=== PATIENT | female | born 1935 | race Caucasian/White ===

== ENCOUNTER → 2016-05-10 | Outpatient (CLI) | payer MEDICARE, OTHER | LOC: BFHH 14:44 | PROVIDERS: ATTEND Family Medicine | DX: R30.0 Dysuria (principal) ==

== ENCOUNTER 2016-06-18 13:13 | Emergency (ER) | payer MEDICARE, OTHER ==
[2016-06-18 13:32] VITALS: TEMP 98.2
[2016-06-18] MEDS ORDERED: ASPIRIN TABLET 325 MG TAB PO ONE (13:52)
--- NOTE | 2016-06-18 14:06 | RAD ---
EXAM DESCRIPTION: Chest,1 View CLINICAL HISTORY: chest pain COMPARISON: October 12, 2014 IMPRESSION: Single AP portable upright view of the chest shows mild enlargement of the cardiac silhouette without pulmonary vascular congestion. Left subclavian dual-lead transvenous cardiac pacemaker seen in place. Lungs are hypoaerated without acute appearing infiltrate or consolidation.. No obvious pleural effusion or pneumothorax is seen. Multiple remote right-sided rib fractures are again seen. Electronically signed by: Kenan Cárdenas MD 06/18/2016 2:04 PM SUPERVISOR WOOD ROOM
[2016-06-18] MEDS ORDERED: NITROGLYCERIN 0.4 MG 25 EA TAB SL ONE (14:07)
--- NOTE | 2016-06-18 15:08 | ED.PDOC ---
History of Present Illness - General Chief Complaint: Chest Pain/NE Stated Complaint: chest pain Time Seen by Provider: 06/18/16 14:06 Source: RN notes reviewed, Vital Signs reviewed, family Exam Limitations: physical impairment - History of Present Illness Initial Comments: Patient is a 81 y/o female with a past history of CVA who is brought in by her daughter with complaints of chest pain. Patient only says "NO" to all my questions and it is difficult to discern exactly where the pain is--in the chest or abdomen. Neurologically, this is Patient's baseline. Patient is agitated and does not want anyone to touch her. Her states that this started just prior to lunch. This is not her baseline as far as anxiety. Timing/Duration: 1-3 hours Severity: moderate Improving Factors: nothing Worsening Factors: nothing Associated Symptoms: chest pain Allergies/Adverse Reactions: Allergies NO KNOWN ALLERGY Allergy (Verified 06/18/16 13:32) Home Medications: Ambulatory Orders Atorvastatin Calcium [Lipitor] 10 mg PO AC 10/12/14 Ciprofloxacin [Cipro] 500 mg PO BID #20 tab 10/12/14 Lisinopril 10 mg PO QPM 10/12/14 Metoprolol & Hydrochlorothiazi 50 mg PO BID 10/12/14 metroNIDAZOLE [Flagyl] 500 mg PO Q6HRS #40 tab 10/12/14 Pantoprazole Sodium [Protonix] 40 mg PO DAILY #14 tab 06/18/16 Review of Systems - Review of Systems Cardiology: States: chest pain Neurological: States: anxiety Unable to Obtain Due To: condition - Patient unable to verbalize and communicate due to prior CVA Past Medical History (General) - Patient Medical History Hx Stroke: Yes Hx Pacemaker: Yes Hx Diabetes: No Hx Cancer: Yes Hx Hepatitis C: No - Vaccination History Hx Tetanus, Diphtheria Vaccination: - unknown Hx Influenza Vaccination: - unknown Hx Pneumococcal Vaccination: - unknown - Social History Hx Tobacco Use: No Hx Alcohol Use: Yes - wine, occasional Hx Substance Use: No Hx Substance Use Treatment: No Hx Depression: No - Activities of Daily Living Hospice Agency (if applicable):: None - Female History Patient is a Female of Child Bearing Age (10 -59 yrs old): No Patient : No Family Medical History - Family History Mother Name: mother Living Status: Age at (years of age): 82 Cause of : stroke Physical Exam - Physical Exam General Appearance: Anxious, Obvious distress Eye Exam: bilateral normal Ears, Nose, Throat: normal ENT inspection Respiratory: lungs clear, normal breath sounds, no respiratory distress, no accessory muscle use Cardiovascular/Chest: regular rate, rhythm, no edema, no gallop, no murmur Gastrointestinal/Abdominal: normal bowel sounds, non tender - This is questionable as Patient looked at me very aggravated when I palpated the epigastric area. I was unable to tell whether this was painful or if Patient was simply aggravated because I was touching her., soft, no organomegaly Extremity: normal range of motion, non-tender, no pedal edema Neurologic: alert, other - very anxious Skin Exam: normal color, warm/dry Progress - Progress Progress: 06/18/16 16:24 Patient was very anxious and I had ordered some Ativan for her. However, after she went to the bathroom, she felt much better. The anxiety was decreased significantly and she was able to point to the area that was painful--the epigastric area. Since all her labs are normal, and patient is extremely ready to go home, I will discharge her with some Protonix and have her follow up with her PCP. - Results/Orders Results/Orders: 06/18/16 06/18/16 06/18/16 13:13 13:32 14:35 Temperature 98.2 F Pulse Rate [ 69 74 pulse ox] Respiratory 20 26 H 20 Rate Blood Pressure 154/69 115/46 [Left Arm] O2 Sat by Pulse 97 94 L Oximetry 06/18/16 13:30 EKG STAT Laboratory Results WBC 8.3 K/mm3 (4.8-10.8) 06/18/16 13:55 RBC 4.70 M/mm3 (4.20-5.40) 06/18/16 13:55 Hgb 14.6 gm/dL (12.0-16.0) 06/18/16 13:55 Hct 44.1 % (36.0-47.0) 06/18/16 13:55 MCV 93.9 fl (81.0-99.0) 06/18/16 13:55 MCH 31.1 pg (27.0-31.0) H 06/18/16 13:55 MCHC 33.2 g/dL (33.0-37.0) 06/18/16 13:55 RDW 14.8 % (11.5-14.5) H 06/18/16 13:55 Plt Count 234 K/mm3 (130-400) 06/18/16 13:55 MPV 8.7 fl (7.40-10.4) 06/18/16 13:55 Absolute Neuts (auto) 6.30 K/uL (1.8-6.8) 06/18/16 13:55 Absolute Lymphs (auto) 1.50 K/uL (1.0-3.4) 06/18/16 13:55 Absolute Monos (auto) 0.30 K/uL (0.2-0.8) 06/18/16 13:55 Absolute Eos (auto) 0.10 K/uL (0.0-0.4) 06/18/16 13:55 Absolute Basos (auto) 0.00 K/uL (0.0-0.1) 06/18/16 13:55 Neutrophils % 76.8 % (42.0-78.0) 06/18/16 13:55 Lymphocytes % 17.9 % (20.0-50.0) L 06/18/16 13:55 Monocytes % 3.5 % (2.0-9.0) 06/18/16 13:55 Eosinophils % 1.6 % (1.0-5.0) 06/18/16 13:55 Basophils % 0.2 % (0.0-2.0) 06/18/16 13:55 PT 10.5 SECONDS (9.4-12.5) 06/18/16 13:55 INR 0.930 06/18/16 13:55 PTT (SP) 26.1 SECONDS (25.1-36.5) 06/18/16 13:55 D-Dimer, Quantitative 443 ng/mL (0-230) H* 06/18/16 13:55 Sodium 142 mmol/L (135-145) 06/18/16 13:55 Potassium 3.7 mmol/L (3.6-5.0) 06/18/16 13:55 Chloride 105 mmol/L (101-111) 06/18/16 13:55 Carbon Dioxide 28 mmol/L (21-31) 06/18/16 13:55 Anion Gap 12.7 (12-18) 06/18/16 13:55 BUN 17 mg/dL (7-18) 06/18/16 13:55 Creatinine 1.01 mg/dL (0.6-1.3) 06/18/16 13:55 BUN/Creatinine Ratio 16.8 (10-20) 06/18/16 13:55 Random Glucose 105 mg/dL (70-105) 06/18/16 13:55 Serum Osmolality 285.0 mOsm/L (275-295) 06/18/16 13:55 Calcium 9.2 mg/dL (8.4-10.2) 06/18/16 13:55 Magnesium 2.0 mg/dL (1.8-2.5) 06/18/16 13:55 Creatine Kinase 58 IU/L (26-140) 06/18/16 13:55 CK-MB (CK-2) 1.1 ng/mL (0.0-4.4) 06/18/16 13:55 CK-MB (CK-2) % Not Reportable 06/18/16 13:55 Troponin I < 0.02 ng/mL (0.01-0.05) 06/18/16 13:55 B-Natriuretic Peptide 37.8 pg/ml (0-100) 06/18/16 13:55 Urine Color Yellow (Yellow) 06/18/16 14:37 Urine Appearance Clear (Clear) 06/18/16 14:37 Urine pH 5.5 (4.5-7.8) 06/18/16 14:37 Ur Specific [place] 1.025 (1.005-1.030) 06/18/16 14:37 Urine Protein Negative mg/dL 06/18/16 14:37 Urine Glucose (UA) Negative mg/dL (Negative) 06/18/16 14:37 Urine Ketones Trace mg/dL (NEGATIVE) 06/18/16 14:37 Urine Blood Small (Negative) H 06/18/16 14:37 Urine Nitrite Negative 06/18/16 14:37 Urine Bilirubin Negative (NEGATIVE) 06/18/16 14:37 Urine Urobilinogen 0.2 mg/dL (0.2-1.0) 06/18/16 14:37 Ur Leukocyte Esterase Negative (Negative) 06/18/16 14:37 Urine RBC 1-3 /hpf 06/18/16 14:37 Urine WBC 1-3 /hpf 06/18/16 14:37 Ur Epithelial Cells 0 /hpf 06/18/16 14:37 Urine Bacteria 0 06/18/16 14:37 - EKG/XRAY/CT EKG: Sinus - 60, no ST T wave changes, Unchanged from - EKG of 10/12/2014 Comments: LAD, short [place] -- left anterior fascifular block XRAY: chest Xray Comments: No acute process. Departure - Departure Clinical Impression: Gastritis Time of Disposition: 16:27 Disposition: Discharge to Home or Self Care Condition: Poor Departure Forms: ED Discharge - Pt. Copy, Patient Portal Self Enrollment Instructions: Gastritis, [place] Diet, DI for Gastritis Diet: bland diet Referrals: Lambert Chambers MD [Primary Care Provider] - 1-5 Days Prescriptions: Pantoprazole Sodium [Protonix] 40 mg PO DAILY #14 tab Home Medications: Ambulatory Orders Atorvastatin Calcium [Lipitor] 10 mg PO AC 10/12/14 Ciprofloxacin [Cipro] 500 mg PO BID #20 tab 10/12/14 Lisinopril 10 mg PO QPM 10/12/14 Metoprolol & Hydrochlorothiazi 50 mg PO BID 10/12/14 metroNIDAZOLE [Flagyl] 500 mg PO Q6HRS #40 tab 10/12/14 Pantoprazole Sodium [Protonix] 40 mg PO DAILY #14 tab 06/18/16 Additional Instructions: Follow up for any worsening of symptoms.
[2016-06-18 16:44] VITALS: BP 101/65; O2SAT 97
== END 2016-06-18 16:44 | disposition home or self-care (01) ==
LOC: ER 13:13
DX: K29.70 Gastritis, unspecified, without bleeding (principal); I69.928 Other speech and language deficits following unspecified cerebrovascular disease; F41.9 Anxiety disorder, unspecified; I44.4 Left anterior fascicular block; Z95.0 Presence of cardiac pacemaker; Z85.9 Personal history of malignant neoplasm, unspecified; Z79.899 Other long term (current) drug therapy; Z82.3 Family history of stroke

== ENCOUNTER 2016-06-29 22:32 | Emergency (ER) | payer MEDICARE, OTHER ==
[2016-06-29] MEDS ORDERED: LIDOCAINE 1% 10 ML VIAL INJ ONE (22:39)
[2016-06-29] MEDS ORDERED: POVIDONE IODINE 10 % 15 ML UD TOP ONE (22:39)
[2016-06-29 22:48] VITALS: TEMP 98.1; O2SAT 97
--- NOTE | 2016-06-29 23:36 | CT ---
PROCEDURE: Head CLINICAL HISTORY: 81 years Female fall injury. COMPARISON: None. TECHNIQUE: Contiguous axial images obtained through the brain without IV contrast. FINDINGS: The ventricles and sulci are prominent consistent with atrophic changes. Microvascular ischemic changes. No mass lesions. No acute hemorrhage. Atherosclerotic calcifications. Old infarct in the territory of the left middle cerebral artery. Old infarcts in the left cerebellum. Changes from scleral banding around the right globe. Mild mucosal thickening in the right maxillary sinus. Mild mucosal thickening and secretions in the left sphenoid sinus. The left mandibular condyle appears inferiorly displaced from the joint space. Clinical evaluation recommended. No depressed calvarial fractures. IMPRESSION: No acute intracranial abnormality is identified. Old ischemic changes. The left mandibular condyle appears inferiorly displaced. Clinical evaluation recommended. Electronically signed by: Hao Carrillo MD 06/29/2016 11:35 PM DRAGLINE ENGINEER
--- NOTE | 2016-06-30 00:19 | ED.PDOC ---
History of Present Illness - General Chief Complaint: Laceration Stated Complaint: laceration Time Seen by Provider: 06/29/16 22:47 Source: family, EMS Additional Information: Pt fell, tripped over dog at home. Pt brought in by EMS. No reported LOC. Pt with laceration just inferior to right eyebrow with some mild swelling and echymosis. EOM intact. Pt neurologically at baseline with stable expressive dysphasia following h/o CVA. No other reported complaints at this time. - History of Present Illness Timing/Duration: 1-3 hours - prior to arrival Severity: mild Improving Factors: nothing Worsening Factors: nothing Associated Symptoms: denies symptoms Allergies/Adverse Reactions: Allergies NO KNOWN ALLERGY Allergy (Verified 06/18/16 13:32) Home Medications: Ambulatory Orders Atorvastatin Calcium [Lipitor] 10 mg PO AC 10/12/14 Lisinopril 10 mg PO QPM 10/12/14 Metoprolol & Hydrochlorothiazi 50 mg PO BID 10/12/14 Pantoprazole Sodium [Protonix] 40 mg PO DAILY #14 tab 06/18/16 Review of Systems - Review of Systems Constitutional: States: no symptoms reported EENTM: States: no symptoms reported Respiratory: States: no symptoms reported Cardiology: States: no symptoms reported Gastrointestinal/Abdominal: States: no symptoms reported Genitourinary: States: no symptoms reported Musculoskeletal: States: no symptoms reported Skin: States: see HPI Neurological: States: see HPI Endocrine: States: no symptoms reported Hematologic/Lymphatic: States: no symptoms reported Past Medical History (General) - Patient Medical History Hx Stroke: Yes Hx Pacemaker: Yes Hx Diabetes: No Hx Cancer: Yes Hx Hepatitis C: No - Vaccination History Hx Tetanus, Diphtheria Vaccination: - unknown Hx Influenza Vaccination: - unknown Hx Pneumococcal Vaccination: - unknown - Social History Hx Tobacco Use: No Hx Alcohol Use: No Hx Substance Use: No Hx Substance Use Treatment: No Hx Depression: No - Female History Patient is a Female of Child Bearing Age (10 -59 yrs old): No Patient : No Family Medical History - Family History Mother Name: mother Living Status: Age at (years of age): 82 Cause of : stroke Physical Exam - Physical Exam General Appearance: Alert, Comfortable, No apparent distress Eye Exam: bilateral normal Ears, Nose, Throat: hearing grossly normal, normal ENT inspection Neck: non-tender, full range of motion, supple Respiratory: no accessory muscle use Cardiovascular/Chest: regular rate, rhythm Gastrointestinal/Abdominal: non tender, soft Back Exam: normal inspection Neurologic: precision instrument maker II-XII nml as tested, no motor/sensory deficits, alert, normal mood/affect Skin Exam: other - laceration noted inferior to right eyebrow - see procedure note for details. Progress - EKG/XRAY/CT CT Ordered: Yes Procedures - Laceration/Wound Repair Right Face Wound Length (cm): 2 Wound's Depth, Shape: superficial, linear Wound Explored: clean Wound Repaired With: dermabond Departure - Departure Clinical Impression: Laceration of skin of face Qualifiers: Encounter type: initial encounter Qualifier Code: (S01.81XA) Laceration without foreign body of other part of head, initial encounter Time of Disposition: 00:30 Disposition: Discharge to Home or Self Care Condition: Good Departure Forms: ED Discharge - Pt. Copy, Patient Portal Self Enrollment Instructions: DI for Laceration Repair With Dermabond Home Medications: Ambulatory Orders Atorvastatin Calcium [Lipitor] 10 mg PO AC 10/12/14 Lisinopril 10 mg PO QPM 10/12/14 Metoprolol & Hydrochlorothiazi 50 mg PO BID 10/12/14 Pantoprazole Sodium [Protonix] 40 mg PO DAILY #14 tab 06/18/16 Additional Instructions: Keep wound clean and dry. Return to ER if condition worsens.
[2016-06-30 01:05] VITALS: BP 159/61
== END 2016-06-30 00:42 | disposition home or self-care (01) ==
LOC: ER 22:32
DX: S01.81XA Laceration without foreign body of other part of head, initial encounter (principal); Z86.73 Personal history of transient ischemic attack (TIA), and cerebral infarction without residual deficits; Z95.0 Presence of cardiac pacemaker; Z85.9 Personal history of malignant neoplasm, unspecified; W01.0XXA Fall on same level from slipping, tripping and stumbling without subsequent striking against object, initial encounter; Y92.009 Unspecified place in unspecified non-institutional (private) residence as the place of occurrence of the external cause

== ENCOUNTER → 2016-07-01 | Outpatient (CLI) | payer MEDICARE, OTHER | END | disposition home or self-care (01) | LOC: BFHH 14:26 | PROVIDERS: ATTEND Family Medicine | DX: R30.0 Dysuria (principal) ==

== ENCOUNTER → 2016-07-11 | Outpatient (CLI) | payer MEDICARE, OTHER | END | disposition home or self-care (01) | LOC: GMAM 10:46 | PROVIDERS: ATTEND Family Medicine | DX: R53.83 Other fatigue (principal); E55.9 Vitamin D deficiency, unspecified ==

== ENCOUNTER → 2017-01-03 | Outpatient (CLI) | payer MEDICARE, OTHER | END | disposition home or self-care (01) | LOC: BFHH 09:09 | PROVIDERS: ATTEND Family Medicine | DX: D51.0 Vitamin B12 deficiency anemia due to intrinsic factor deficiency (principal); I11.0 Hypertensive heart disease with heart failure; E78.2 Mixed hyperlipidemia ==

== ENCOUNTER → 2017-11-03 | Outpatient (CLI) | payer OTHER | LOC: SOLHH 16:18 | PROVIDERS: ATTEND Family Medicine | DX: R32 Unspecified urinary incontinence (principal) ==

== ENCOUNTER 2017-11-16 21:41 | Inpatient (IN) | payer MEDICARE, OTHER ==
--- NOTE | 2017-11-16 22:28 | RAD ---
EXAM DESCRIPTION: Chest,1 View CLINICAL HISTORY:82 years Female, vomiting,lethargic Comparison: June 18, 2016 FINDINGS: Right basilar patchy opacities may represent atelectasis or pneumonia. Left sided cardiac device. No pleural effusion. No pneumothorax. Cardiac and mediastinal silhouette is unremarkable. No acute osseous abnormality. Soft tissues are unremarkable. IMPRESSION: Minimal right basilar patchy opacities may represent atelectasis or pneumonia. Electronically signed by: Ravindra Scales MD 11/16/2017 10:27 PM CDT
--- NOTE | 2017-11-16 23:04 | ED.PDOC ---
History of Present Illness - General Chief Complaint: GI Problem Stated Complaint: N/V Time Seen by Provider: 11/16/17 22:03 Source: patient Exam Limitations: clinical condition - History of Present Illness Initial Comments: Elina Mancia 82 y/o female brought by EMS after she had N/V 2 x at home tonight.No diarrhea ,no fever or chills.Has history of cva with right sided deficits. Timing/Duration: 1-3 hours Severity: moderate Improving Factors: nothing Worsening Factors: nothing Associated Symptoms: other - see hpi Allergies/Adverse Reactions: Allergies NO KNOWN ALLERGY Allergy (Verified 06/18/16 13:32) Home Medications: Ambulatory Orders Atorvastatin Calcium [Lipitor] 10 mg PO AC 10/12/14 Lisinopril 10 mg PO QPM 10/12/14 Metoprolol & Hydrochlorothiazi 50 mg PO BID 10/12/14 Pantoprazole Tablet [Protonix] 40 mg PO DAILY #14 tab 06/18/16 Review of Systems - Review of Systems Gastrointestinal/Abdominal: States: see HPI Neurological: States: pre-existing deficit - cva right sided weakness Unable to Obtain Due To: clinical condition - cva non verbal All other Systems: Reviewed and Negative, No Change from Baseline Past Medical History (General) - Patient Medical History Hx Stroke: Yes Hx Cardiac Disorders: Yes Hx Pacemaker: Yes Hx Diabetes: No Hx Cancer: Yes Hx Hepatitis C: No Surgical History: pacemaker - Vaccination History Hx Tetanus, Diphtheria Vaccination: - unknown Hx Influenza Vaccination: No Hx Pneumococcal Vaccination: No - Social History Hx Tobacco Use: No Hx Alcohol Use: No Hx Substance Use: No Hx Substance Use Treatment: No Hx Depression: No Hx Physical Abuse: No Hx Emotional Abuse: No - Activities of Daily Living Patient Lives Alone: No Hospice Agency (if applicable):: [facility] - Female History Patient is a Female of Child Bearing Age (10 -59 yrs old): No Patient : No - Triage Comment ED Triage Comment: pt with history of CVA causing rt side weakness, and pt is unable to communicate per daughter. No further vomiting since picked up by EMS Family Medical History - Family History Mother Name: mother Living Status: Age at (years of age): 82 Cause of : stroke Physical Exam - Physical Exam General Appearance: Alert, Comfortable, No apparent distress Eye Exam: bilateral normal Ears, Nose, Throat: normal ENT inspection Neck: non-tender, full range of motion, supple Respiratory: chest non-tender, no respiratory distress, rales - bases Cardiovascular/Chest: normal peripheral pulses, regular rate, rhythm, no murmur Peripheral Pulses: radial,right: 2+, radial,left: 2+ Gastrointestinal/Abdominal: normal bowel sounds, non tender, soft Back Exam: no CVA tenderness, no vertebral tenderness Extremity: non-tender, no pedal edema, no calf tenderness Neurologic: alert, motor weakness - right upper and lower extremities fom old cva, depressed affect Skin Exam: normal color, warm/dry Lymphatic: no adenopathy Progress - Progress Progress: 11/16/17 23:20 Vital Signs - 8 hr 11/16/17 11/16/17 21:52 22:27 Temperature 96.0 F L Pulse Rate [ 60 60 Right] Respiratory 18 18 Rate Blood Pressure 164/90 178/91 [Right Arm] O2 Sat by Pulse 95 98 Oximetry - Results/Orders Results/Orders: Laboratory Results - last 24 hr 11/16/17 11/16/17 22:03 22:12 WBC 7.8 RBC 4.52 Hgb 14.3 Hct 43.0 MCV 95.0 MCH 31.6 H MCHC 33.2 RDW 14.3 Plt Count 281 MPV 7.6 Absolute Neuts (auto) 6.60 Absolute Lymphs (auto) 0.90 L Absolute Monos (auto) 0.20 Absolute Eos (auto) 0.10 Absolute Basos (auto) 0.00 Neutrophils % 85.0 H Lymphocytes % 11.0 L Monocytes % 2.8 Eosinophils % 0.9 L Basophils % 0.3 PT 9.3 INR 0.93 PTT (SP) 26.2 Sodium 139 Potassium 3.6 Chloride 100 L Carbon Dioxide 29 Anion Gap 13.6 BUN 11 Creatinine 0.76 BUN/Creatinine Ratio 14.5 Random Glucose 134 H Serum Osmolality 278.9 Calcium 9.2 Magnesium 2.0 Total Bilirubin 0.5 Direct Bilirubin 0.1 Indirect Bilirubin 0.4 AST 15 ALT 11 Alkaline Phosphatase 90 Creatine Kinase 60 CK-MB (CK-2) 1.5 CK-MB (CK-2) % Not Reportable Troponin I < 0.02 Serum Total Protein 7.5 Albumin 3.9 Lipase 20 L - EKG/XRAY/CT XRAY: chest - right patchy scattered opacities Departure - Departure Clinical Impression: CVA, old, hemiparesis Nausea & vomiting Qualifiers: Vomiting type: unspecified Vomiting Intractability: intractable Qualified Code( s): R11.2 - Nausea with vomiting, unspecified Aspiration pneumonia Qualifiers: Aspiration pneumonia type: due to gastric secretions Laterality: right Lung location: lower lobe of lung Qualified Code(s): J69.0 - Pneumonitis due to inhalation of food and vomit Time of Disposition: 23:24 Disposition: Admit Patient Condition: Fair Departure Forms: Patient Portal Self Enrollment Referrals: Lambert Chambers MD [Primary Care Provider] - 1-2 Weeks Home Medications: Ambulatory Orders Atorvastatin Calcium [Lipitor] 10 mg PO AC 10/12/14 Lisinopril 10 mg PO QPM 10/12/14 Metoprolol & Hydrochlorothiazi 50 mg PO BID 10/12/14 Pantoprazole Tablet [Protonix] 40 mg PO DAILY #14 tab 06/18/16 Decision To Admit - Decistion To Admit Decision to Admit Reason: Admit from ER Decision to Admit Date: 11/16/17 - D/W Helen Painter-DENNIS/Hospitalist Decision to Admit Time: 23:22
[2017-11-16] MEDS ORDERED: AMPICILLIN & SULBACTAM SODIUM 3 GM in SODIUM CHL 0.9% 100ML MINI-BAG 100 ML IVPB ONE (23:23)
[2017-11-16] MEDS ORDERED: AMPICILLIN & SULBACTAM SODIUM 3 GM VIAL ONE (23:30)
[2017-11-16] MEDS ORDERED: SODIUM CHL 0.9% 100ML MINI-BAG 100 ML IVPB ONE (23:30)
[2017-11-17] MEDS ORDERED: ACETAMINOPHEN 325 MG TAB PO PRN (00:54)
[2017-11-17] MEDS ORDERED: ALBUTEROL SULFATE 2.5 MG/3 ML VIAL NEB PRN (00:58)
[2017-11-17] MEDS ORDERED: IV SET AND CAP CHANGE INJ INJ SCH (01:00)
[2017-11-17] MEDS ORDERED: ENOXAPARIN SODIUM 40 MG/0.4 ML SYG SUBCU SCH (01:00)
[2017-11-17] MEDS ORDERED: KCL 20MEQ/0.45% NS 1,000 ML IVS ONE (01:01)
[2017-11-17] MEDS: SODIUM CHLORIDE 0.9% (FLUSH) 10 ML SYG IV PRN ×2 (02:15→06:04)
[2017-11-17] MEDS ORDERED: MORPHINE SULFATE INJ 10 MG/ML VIAL IV PRN (02:55)
[2017-11-17] MEDS ORDERED: ONDANSETRON INJ 4 MG/2 ML VIAL IV PRN (02:56)
[2017-11-17] MEDS ORDERED: ACETAMINOPHEN SUPPOSITORY 650 MG PR PRN (02:57)
[2017-11-17] MEDS ORDERED: SODIUM CHL 0.9% 100ML MINI-BAG 100 ML IVPB ONE ×4 (05:23→20:01)
[2017-11-17] MEDS ORDERED: AMPICILLIN & SULBACTAM SODIUM 3 GM VIAL ONE ×4 (05:23→20:02)
[2017-11-17] MEDS: PANTOPRAZOLE SODIUM IV 40 MG VIAL IV SCH (06:04)
[2017-11-17] MEDS: AMPICILLIN & SULBACTAM SODIUM 3 GM in SODIUM CHL 0.9% 100ML MINI-BAG 100 ML IVPB SCH ×3 (06:04→18:00)
--- NOTE | 2017-11-17 07:08 | RAD ---
EXAM DESCRIPTION: Chest,1 View CLINICAL HISTORY: Pneumonia COMPARISON: November 16, 2017 FINDINGS: A dual-lead cardiac pacemaker remains in place. The cardiomediastinal silhouette is unremarkable. There is no airspace consolidation or pleural effusion. The central bronchovascular markings are slightly indistinct. The lungs are not hyperinflated. There is no pneumothorax or acute fracture. IMPRESSION: Indistinct central bronchovascular markings suggest mild central pulmonary vascular congestion. Viral or other atypical infection could have a similar appearance. Otherwise unremarkable exam. Electronically signed by: Rohan Ruiz MD 11/17/2017 7:07 AM CDT
[2017-11-17] MEDS: SODIUM CHLORIDE 0.9% (FLUSH) 10 ML SYG IV SCH ×2 (08:36→21:14)
[2017-11-17] MEDS: ALBUTEROL SULFATE 2.5 MG/3 ML VIAL NEB SCH ×4 (08:47→22:04)
--- NOTE | 2017-11-17 14:57 | HP ---
SUPERVISING PHYSICIAN: Lambert Chambers MD CHIEF COMPLAINT: Nausea and vomiting with aspiration. HISTORY OF PRESENT ILLNESS: This is an 82-year-old female who presented to the Emergency Room with nausea and vomiting. Apparently yesterday she was eating chips and salsa and some guacamole as well. Later on, she developed some nausea and vomiting. At one point, she appeared to choke on the vomit and therefore came to the Emergency Room. In the Emergency Room, she was seen and her x-ray was consistent with pneumonia. Therefore, hospice has actually admitted the patient for aspiration pneumonia. At time of examination, the patient is asleep, but awakens to voice. Her blood sugars are acceptable at this point. She is in no distress. PAST MEDICAL HISTORY: 1. Hypertension. 2. Hyperlipidemia. 3. Diastolic heart failure. 4. Carotid artery disease. 5. Stroke. 6. Dementia. CURRENT MEDICATIONS: 1. Atorvastatin 20 mg p.o. q.a.m. 2. Vitamin D3 50,000 units p.o. daily. 3. Citalopram 10 mg p.o. daily. 4. Aricept 5 mg p.o. daily. 5. Hydrocodone 5 mg p.o. q.6h. p.r.n. for pain. 6. Bisoprolol 2 mg p.o. daily. 7. Ativan 0.5 mg q.6h. as needed. 8. Namenda 5 mg p.o. daily. 9. Metoprolol 25 mg p.o. b.i.d. 10. Naproxen 220 mg p.o. q.12h. p.r.n. 11. Nystatin powder to affected site bilateral 12. MiraLAX 17 grams p.o. daily. ALLERGIES: NO KNOWN DRUG ALLERGIES. FAMILY HISTORY: Noncontributory. SOCIAL HISTORY: The patient lives under hospice care. She is a previous smoker. No alcohol, no illicit drug. REVIEW OF SYSTEMS: Difficult too obtain from the patient due to her dementia. PHYSICAL EXAMINATION: VITAL SIGNS: Blood pressure 111.62. Heart rate 60. Respiratory rate 16. Temperature 97.8. Oxygen saturation 95%. GENERAL: Ms. Mancia is an 82-year-old female who is ill in appearance, but in no distress at this time. HEENT: Normocephalic, atraumatic. Pupils are equal and reactive. No nasal drainage. Throat with moist mucosa. NECK: Supple. Midline trachea. No jugular venous distention. CHEST: Symmetrical with equal rise and fall of the chest with inspiration and expiration. Lung sounds are diminished in the bases, a little bit coarse bilaterally. CARDIOVASCULAR: Regular rate and rhythm. Normal S1, S2. ABDOMEN: Soft. Positive bowel sounds. EXTREMITIES: Lower extremities with no edema. Pulses 2+. Capillary refill is less than 2 seconds. NEUROLOGIC: The patient is confused and a little bit groggy when she awakens, she goes back to sleep quite easily. LABORATORY: Labs are reviewed and show a normal white count, normal hemoglobin. Coag studies are normal. Chemistries unremarkable. ASSESSMENT: 1. Aspiration pneumonia. 2. Advanced dementia. 3. History of cerebrovascular accident with long-term sequela from this. 4. Hypertension. PLAN: At this point, the patient is being managed by [facility]. We will continue with their orders and treat the aspiration pneumonia with the current antibiotics, which appears to be Unasyn at this time. All other medications are being managed by the hospice team. #[id number] [facility]
[2017-11-17] MEDS ORDERED: NON-FORMULARY MEDICATION 1 EA MIS PO PRN (16:00)
[2017-11-17] MEDS ORDERED: METOPROLOL TARTRATE 25 MG TAB PO SCH (21:00)
[2017-11-17] MEDS ORDERED: DONEPEZIL HCL 5 MG TAB PO SCH (21:00)
[2017-11-17] MEDS: ENOXAPARIN SODIUM 40 MG/0.4 ML SYG SUBCU SCH (21:14)
[2017-11-18] MEDS: MORPHINE SULFATE INJ 10 MG/ML VIAL IV PRN ×2 (03:28→11:53)
[2017-11-18] MEDS ORDERED: AMPICILLIN & SULBACTAM SODIUM 3 GM VIAL ONE ×4 (05:25→22:55)
[2017-11-18] MEDS ORDERED: SODIUM CHL 0.9% 100ML MINI-BAG 100 ML IVPB ONE ×4 (05:25→22:54)
[2017-11-18] MEDS: PANTOPRAZOLE SODIUM IV 40 MG VIAL IV SCH (05:57)
[2017-11-18] MEDS: AMPICILLIN & SULBACTAM SODIUM 3 GM in SODIUM CHL 0.9% 100ML MINI-BAG 100 ML IVPB SCH ×6 (06:00→23:40)
[2017-11-18] MEDS ORDERED: NON-FORMULARY MEDICATION 1 EA MIS PO PRN (08:29)
[2017-11-18] MEDS: ATORVASTATIN 20 MG TAB PO SCH (08:49)
[2017-11-18] MEDS: MEMANTINE 10 MG TAB PO SCH (08:49)
[2017-11-18] MEDS: CITALOPRAM HBR 20 MG TAB PO SCH (08:50)
[2017-11-18] MEDS: LISINOPRIL 10 MG TAB PO SCH (08:51)
[2017-11-18] MEDS: SODIUM CHLORIDE 0.9% (FLUSH) 10 ML SYG IV SCH ×2 (08:51→20:32)
[2017-11-18] MEDS: ARIPIPRAZOLE 2 MG PO SCH (08:52)
[2017-11-18] MEDS: METOPROLOL TARTRATE 25 MG TAB PO SCH ×2 (08:55→20:32)
[2017-11-18] MEDS ORDERED: NON-FORMULARY MEDICATION 1 EA MIS PO SCH (09:00)
[2017-11-18] MEDS: ALBUTEROL SULFATE 2.5 MG/3 ML VIAL NEB SCH ×4 (09:10→20:47)
[2017-11-18] MEDS ORDERED: methylPREDNISolone SODIUM SUC 40 MG/ML VIAL ONE (13:21)
[2017-11-18] MEDS: ENOXAPARIN SODIUM 40 MG/0.4 ML SYG SUBCU SCH (20:32)
[2017-11-18] MEDS ORDERED: DONEPEZIL HCL 5 MG TAB PO SCH (21:00)
[2017-11-19] MEDS ORDERED: SODIUM CHL 0.9% 100ML MINI-BAG 100 ML IVPB ONE ×2 (03:56→11:34)
[2017-11-19] MEDS ORDERED: AMPICILLIN & SULBACTAM SODIUM 3 GM VIAL ONE ×2 (03:57→11:34)
[2017-11-19] MEDS: AMPICILLIN & SULBACTAM SODIUM 3 GM in SODIUM CHL 0.9% 100ML MINI-BAG 100 ML IVPB SCH ×2 (06:03→11:39)
[2017-11-19] MEDS: PANTOPRAZOLE SODIUM IV 40 MG VIAL IV SCH (06:04)
[2017-11-19] MEDS: ALBUTEROL SULFATE 2.5 MG/3 ML VIAL NEB SCH ×2 (08:15→13:16)
[2017-11-19] MEDS: CITALOPRAM HBR 20 MG TAB PO SCH (08:40)
[2017-11-19] MEDS: ATORVASTATIN 20 MG TAB PO SCH (08:41)
[2017-11-19] MEDS: METOPROLOL TARTRATE 25 MG TAB PO SCH (08:41)
[2017-11-19] MEDS: MEMANTINE 10 MG TAB PO SCH (08:42)
[2017-11-19] MEDS: LISINOPRIL 10 MG TAB PO SCH (08:47)
[2017-11-19] MEDS: SODIUM CHLORIDE 0.9% (FLUSH) 10 ML SYG IV SCH (08:47)
[2017-11-19] MEDS: ARIPIPRAZOLE 2 MG PO SCH (08:47)
[2017-11-19 10:26] VITALS: TEMP 98.1
[2017-11-19 10:31] VITALS: BP 180/76
[2017-11-19 13:47] VITALS: O2SAT 97
--- NOTE | 2017-11-21 10:48 | DS ---
SUPERVISING PHYSICIAN: Lambert Chambers MD DISCHARGE DIAGNOSIS: 1. Aspiration pneumonia. 2. Advanced dementia. 3. History of cerebrovascular accident with long-term sequela from this. 4. Hypertension. HISTORY OF PRESENT ILLNESS: This is an 82-year-old female who presented to the Emergency Room with nausea and vomiting. She had been eating some chips and salsa the day before and shortly thereafter, developed the abdominal pain with nausea and vomiting. It was reported that she actually choked on her vomit and was brought to the Emergency Room. In the Emergency Room, she was seen and her x-ray was consistent with pneumonia. She is a hospice patient whose hospice diagnosis is CVA. [facility] was notified and she was admitted too the hospital for aspiration pneumonia. HOSPITAL COURSE: Most of the orders were written by [facility]. She did receive Unasyn in the Emergency Room and that was continued. Her other previous medications were continued. She was actually admitted to the hospital under [facility], but was treated for aspiration pneumonia. Her chest x- ray showed some pulmonary vascular congestion. Her vital signs remained stable although her oxygen saturations were in the low 90s. Due to her clinical response and improvement, she will be discharged home to continue with [facility]. DISCHARGE PLAN: The patient will be discharged home in stable condition. She is to resume her previous hospice medications plus 7 days of Augmentin and increase activity as tolerated. If she has any problems, she is to followup with Dr. Chambers or [facility] for any problems or complications. She is recommended to followup with Dr. Chambers within the next one to two weeks. DISCHARGE MEDICATIONS: 1. Nystatin. 2. Naprosyn. 3. MiraLAX. 4. Namenda. 5. Metoprolol. 6. Lisinopril. 7. Hydrocodone. 8. Citalopram. 9. Vitamin D. 10. Atorvastatin. 11. Lorazepam. 12. Donepezil. 13. Augmentin. #[id number] [facility]
== END 2017-11-19 15:40 | disposition hospice, home (50) | DRG 178 ==
LOC: ER 21:41 → MS 11-17 00:26
PROVIDERS: ADMIT Nurse Practitioner; ATTEND Nurse Practitioner Acute Care
DX: J69.0 Pneumonitis due to inhalation of food and vomit (principal); I50.32 Chronic diastolic (congestive) heart failure; I69.351 Hemiplegia and hemiparesis following cerebral infarction affecting right dominant side; I11.0 Hypertensive heart disease with heart failure; F03.90 Unspecified dementia, unspecified severity, without behavioral disturbance, psychotic disturbance, mood disturbance, and anxiety; E78.5 Hyperlipidemia, unspecified; Z66 Do not resuscitate; Z79.891 Long term (current) use of opiate analgesic; Z79.1 Long term (current) use of non-steroidal anti-inflammatories (NSAID); Z79.899 Other long term (current) drug therapy; Z87.891 Personal history of nicotine dependence; Z95.0 Presence of cardiac pacemaker